=== PATIENT | female | born 1990 | race African-American/Black ===

== ENCOUNTER 2021-02-01 21:50 | Inpatient (IN) | payer SELFPAY ==
[2021-02-01] MEDS ORDERED: Ondansetron PF 4 MG/2 ML Vial ONE (22:58)
[2021-02-01] MEDS ORDERED: Morphine 4 MG/ML VIAL ONE (22:58)
[2021-02-01 23:08] LABS: Bilirubin Neg (Negative); Blood, Urine 25 (Negative); Clarity Clear (Clear); Glucose, Urine (Dipstick) Normal (Negative); Ketone, Urine 15 mg/dL (Negative); Leukocyte 25 (Negative); Nitrite Negative (Negative); Protein, Urine (Dipstick) 15 mg/dl (Neg-Trace); pH, Urine 6.5 (5.0-9.0)
[2021-02-01 23:12] LABS: Pregnancy Test - Urine (BHCG) Negative (Negative); Pregu Control Background? CLEAR/WHITE (CLR/WHITE); Pregu Control Bar Appear? YES (CONTROL BAR)
[2021-02-01 23:16] LABS: RBC/HPF 0-3 HPF (0-3); Squamous Epithelial 0-3 HPF (0-3)
[2021-02-01 23:17] LABS: Bacteria/HPF 2+ HPF (None Seen); Mucous/LPF 2+ LPF (<2+)
[2021-02-01 23:19] LABS: #Monocytes 0.7 10x3/uL (0.0-1.1); #Neutrophils 11.5 10x3/uL (1.5-8.4); %Basophils 0.2 % (0.0-2.0); %Lymphocytes 4.3 % (18.0-47.0); %Monocytes 5.4 % (0.0-10.0); %Neutrophils 89.7 % (40.0-75.0); Hemoglobin 11.1 g/dL (12.0-15.5); Mean Corpuscular Hemoglobin 31.6 pg (27.0-33.0); Mean Corpuscular Volume 95.7 fl (81.6-98.3); Mean Platelet Volume 10.4 fl (7.4-10.4); Platelet Count 153 10x3/uL (150-450); RBC Distribution Width 12.9 % (11.5-14.5); Red Blood Cell (RBC) Count 3.51 10x6/uL (3.90-5.03); White Blood Cell (WBC) Count 12.9 10x3/uL (3.5-10.5)
[2021-02-01 23:25] LABS: ALT (SGPT) 9 U/L (8-55); AST (SGOT) 13 U/L (5-34); Alkaline Phosphatase 53 U/L (40-110); Anion Gap 14 mmol/L (10-20); BUN (Urea Nitrogen) 9 mg/dL (7.0-18.7); Bilirubin, Total 0.8 mg/dL (0.2-1.2); Calc. Creatinine Clearance 0 mL/min (70-130); Carbon Dioxide 24 mmol/L (22-29); Chloride 103 mmol/L (98-107); Globulin 3.4 g/dL (2.4-3.5); Glucose 103 mg/dL (70-105); Protein, Total 7.4 g/dL (6.0-8.3); Sodium 137 mmol/L (136-145)
[2021-02-02] MEDS ORDERED: Ketorolac Tromethamine 30 MG/ML VIAL ONE (00:17)
[2021-02-02] MEDS ORDERED: Piperacillin/Tazobactam 3.375 GM VIAL ONE (00:18)
[2021-02-02 00:20] LABS: Lipase Less than 4 U/L (8-78)
[2021-02-02] MEDS ORDERED: Morphine 4 MG/ML VIAL ONE (02:10)
[2021-02-02] MEDS ORDERED: metroNIDAZOLE 500 MG TAB ONE (02:55)
[2021-02-02 03:47] VITALS: BMI 21.4
[2021-02-02] MEDS ORDERED: Ondansetron PF 4 MG/2 ML Vial IVP PRN (05:03)
[2021-02-02] MEDS ORDERED: Ondansetron ODT 4 MG TAB PO PRN (05:04)
[2021-02-02] MEDS ORDERED: Acetaminophen 325 MG TAB PO PRN (05:05)
[2021-02-02] MEDS ORDERED: Lactated Ringer's 1,000 ML IV SCH (05:15)
[2021-02-02] MEDS ORDERED: Piperacillin/Tazobactam 3.375 GM in Sodium Chloride 0.9% 100 ML IVPB SCH (05:30)
[2021-02-02] MEDS ORDERED: Sodium Chloride 0.9% 1,000 ML ONE (05:49)
[2021-02-02] MEDS ORDERED: Morphine 2 MG/ML VIAL SLOW IVP PRN (05:53)
[2021-02-02] MEDS: Piperacillin/Tazobactam 3.375 GM in Sodium Chloride 0.9% 100 ML IVPB SCH ×3 (06:03→21:48)
[2021-02-02] MEDS: Sodium Chloride 0.9% 1,000 ML ONE ×2 (06:03→06:32)
[2021-02-02] MEDS: HYDROcodone/Acetaminophen 5/325 mg Tablet PO PRN ×3 (06:09→21:43)
[2021-02-02] MEDS: Sodium Chloride 0.9% 1,000 ML IV SCH ×3 (06:33→21:50)
[2021-02-02 08:58] LABS: Hemoglobin 9.7 g/dL (12.0-15.5); Mean Corpuscular HGB CONC 32.9 g/dL (32.0-36.0); Mean Corpuscular Hemoglobin 31.8 pg (27.0-33.0); Mean Corpuscular Volume 96.7 fl (81.6-98.3); Mean Platelet Volume 10.8 fl (7.4-10.4); Platelet Count 135 10x3/uL (150-450); Red Blood Cell (RBC) Count 3.05 10x6/uL (3.90-5.03); White Blood Cell (WBC) Count 16.7 10x3/uL (3.5-10.5)
[2021-02-02 09:01] LABS: ALT (SGPT) 8 U/L (8-55); AST (SGOT) 12 U/L (5-34); Albumin 3.3 g/dL (3.5-5.0); Alkaline Phosphatase 49 U/L (40-110); Anion Gap 10 mmol/L (10-20); BUN (Urea Nitrogen) 9 mg/dL (7.0-18.7); Bilirubin, Total 0.8 mg/dL (0.2-1.2); Calc. Creatinine Clearance 86 mL/min (70-130); Calcium 8.7 mg/dL (7.8-10.44); Carbon Dioxide 24 mmol/L (22-29); Chloride 106 mmol/L (98-107); Globulin 2.7 g/dL (2.4-3.5); Glucose 96 mg/dL (70-105); Magnesium 1.6 mg/dL (1.6-2.6); Potassium 3.4 mmol/L (3.5-5.1); Sodium 137 mmol/L (136-145)
[2021-02-02 09:12] LABS: MDiff Complete? YES
[2021-02-02] MEDS: Famotidine 20 MG TAB PO SCH ×2 (09:14→21:49)
[2021-02-02] MEDS: Enoxaparin Sodium 40 MG/0.4 ML SYRINGE SC SCH (09:14)
[2021-02-02 09:20] LABS: Band 27 % (5-11); Lymphocytes 7 % (21-51); Monocytes 5 % (0-10); Neutrophil 61 % (42-75)
[2021-02-02 09:22] LABS: Platelet Morphology Comment Appears Decreased; RBC Morphology Normal
[2021-02-02 16:33] LABS: SARS-CoV-2 PCR by NAA Not Detected (NotDetected)
[2021-02-03] MEDS: HYDROcodone/Acetaminophen 5/325 mg Tablet PO PRN ×2 (03:55→09:49)
[2021-02-03] MEDS: Sodium Chloride 0.9% 1,000 ML IV SCH ×3 (05:09→17:15)
[2021-02-03 05:27] LABS: ALT (SGPT) 6 U/L (8-55); AST (SGOT) 13 U/L (5-34); Albumin 3.3 g/dL (3.5-5.0); Alkaline Phosphatase 45 U/L (40-110); Anion Gap 11 mmol/L (10-20); BUN (Urea Nitrogen) 8 mg/dL (7.0-18.7); Bilirubin, Total 0.6 mg/dL (0.2-1.2); Calc. Creatinine Clearance 100 mL/min (70-130); Calcium 9.1 mg/dL (7.8-10.44); Carbon Dioxide 24 mmol/L (22-29); Chloride 105 mmol/L (98-107); Globulin 2.9 g/dL (2.4-3.5); Glucose 80 mg/dL (70-105); Magnesium 1.9 mg/dL (1.6-2.6); Potassium 3.4 mmol/L (3.5-5.1); Protein, Total 6.2 g/dL (6.0-8.3); Sodium 137 mmol/L (136-145)
[2021-02-03] MEDS: Piperacillin/Tazobactam 3.375 GM in Sodium Chloride 0.9% 100 ML IVPB SCH ×2 (05:29→17:14)
[2021-02-03 05:40] LABS: #Eosinphils 0.1 10x3/uL (0.0-0.5); #Monocytes 1.1 10x3/uL (0.0-1.1); #Neutrophils 9.7 10x3/uL (1.5-8.4); %Basophils 0.2 % (0.0-2.0); %Eosinophils 0.8 % (0.0-6.0); %Lymphocytes 10.4 % (18.0-47.0); %Monocytes 8.7 % (0.0-10.0); %Neutrophils 79.5 % (40.0-75.0); Mean Corpuscular Hemoglobin 31.9 pg (27.0-33.0); Mean Corpuscular Volume 96.8 fl (81.6-98.3); Mean Platelet Volume 10.9 fl (7.4-10.4); Platelet Count 143 10x3/uL (150-450); RBC Distribution Width 12.9 % (11.5-14.5); Red Blood Cell (RBC) Count 3.13 10x6/uL (3.90-5.03); White Blood Cell (WBC) Count 12.2 10x3/uL (3.5-10.5)
[2021-02-03] MEDS ORDERED: Azithromycin 1,000 MG, Admixture Fee 1 EACH in Sodium Chloride 0.9% 500 ML IVPB SCH (09:00)
[2021-02-03] MEDS: Enoxaparin Sodium 40 MG/0.4 ML SYRINGE SC SCH (09:09)
[2021-02-03] MEDS: Famotidine 20 MG TAB PO SCH (09:09)
[2021-02-03 16:50] LABS: Chlamydia by PCR Not Detected (NotDetected); GC by PCR DETECTED (NotDetected)
[2021-02-03] MEDS ORDERED: cefTRIAXone\\ROCEPHIN 1 GM in Sodium Chloride 0.9% 100 ML IVPB SCH (18:00)
[2021-02-03 20:50] VITALS: BP 118/72; TEMP 99.1
== END 2021-02-03 20:00 | disposition home or self-care (01) | DRG 690 ==
LOC: CSHERS 21:50 → CSHTELE 02-02 03:43 → OBSVTOIN 02-02 05:28
PROVIDERS: ADMIT Internal Medicine; ATTEND Internal Medicine
DX: N39.0 Urinary tract infection, site not specified (principal); A54.01 Gonococcal cystitis and urethritis, unspecified; F17.210 Nicotine dependence, cigarettes, uncomplicated; R11.2 Nausea with vomiting, unspecified; R10.13 Epigastric pain; Z20.822 Contact with and (suspected) exposure to COVID-19
CPT/HCPCS: 36415; 74177; 76856; 80053; 81003; 81015; 81025; 83036; 83605; 83690; 83735; 85025; 87040; 87086; 87480; 87491; 87510; 87591; 87660; 96365; 96375; 96376; J0456; J0696; J1650; J1885; J2270; J2405; J2543; J3490; J7030; J7050; J7120; U0003; U0005

== ENCOUNTER 2022-01-27 11:17 | Day surgery (SDC) | payer OTHER, SELFPAY ==
[2022-01-27 12:13] VITALS: BMI 22.3
[2022-01-27] MEDS ORDERED: hydrALAZINE 20 MG/ML VIAL SLOW IVP PRN (13:03)
[2022-01-27] MEDS ORDERED: Ondansetron ODT 4 MG TAB SL PRN (13:37)
[2022-01-27 14:41] LABS: Amphetamine Not Detected (NotDetected); Barbiturates Screen Not Detected (NotDetected); Benzodiazepine Screen Not Detected (NotDetected); Cocaine Metabolite Screen Not Detected (NotDetected); Methadone Not Detected (NotDetected); Methamphetamine Not Detected (NotDetected); Opiate Screen Not Detected (NotDetected); Oxycodone Screen Not Detected (NotDetected); Phencyclidine (PCP) Not Detected (NotDetected); THC/Cannabinoid Screen Detected (NotDetected); Tricyclic Screen Not Detected (NotDetected)
== END 2022-01-27 14:20 | disposition left against medical advice (07) ==
LOC: CSHLD/OP 11:17
PROVIDERS: ATTEND Obstetrics & Gynecology
DX: O21.2 Late vomiting of pregnancy (principal); Z3A.33 33 weeks gestation of pregnancy
CPT/HCPCS: 80306; 99283; Q0162

== ENCOUNTER 2022-03-04 03:48 | Inpatient (IN) | payer OTHER ==
[2022-03-04] MEDS ORDERED: Misoprostol 200 MCG TAB PR PRN (05:32)
[2022-03-04] MEDS ORDERED: hydrALAZINE 20 MG/ML VIAL SLOW IVP PRN ×2 (05:32→09:23)
[2022-03-04] MEDS ORDERED: Acetaminophen 500 MG TAB PO PRN (05:32)
[2022-03-04] MEDS ORDERED: Butorphanol Tartrate 1 MG/ML VIAL SLOW IVP PRN (05:32)
[2022-03-04] MEDS ORDERED: Lidocaine 1% (PF) 30 ML VIAL SC PRN (05:32)
[2022-03-04] MEDS ORDERED: Carboprost 250 MCG/ML AMP IM PRN (05:32)
[2022-03-04] MEDS ORDERED: Ibuprofen 800 MG TAB PO PRN (05:32)
[2022-03-04] MEDS ORDERED: Promethazine HCl 25 MG/ML VIAL IM PRN ×2 (05:32→09:23)
[2022-03-04] MEDS ORDERED: Methylergonovine 0.2 MG/ML VIAL IM PRN ×2 (05:32→09:23)
[2022-03-04] MEDS ORDERED: Ondansetron PF 4 MG/2 ML Vial IVP PRN ×2 (05:32→09:23)
[2022-03-04 05:39] VITALS: BMI 25.0
[2022-03-04] MEDS ORDERED: Lactated Ringer's 1,000 ML IV SCH (05:45)
[2022-03-04] MEDS ORDERED: NS w/ Oxytocin 30 units 500 ML IV SCH ×3 (05:45→09:23)
[2022-03-04 06:19] LABS: Mean Corpuscular HGB CONC 34.4 g/dL (32.0-36.0); Mean Corpuscular Hemoglobin 31.3 pg (27.0-33.0); Mean Corpuscular Volume 90.9 fl (81.6-98.3); Mean Platelet Volume 10.8 fl (7.4-10.4); Platelet Count 249 10x3/uL (150-450); RBC Distribution Width 12.8 % (11.5-14.5); White Blood Cell (WBC) Count 10.8 10x3/uL (3.5-10.5)
[2022-03-04 06:48] LABS: HBSAg Index 0.22 S/CO (0-0.99); Hep B Surf Ag Non-Reactive S/CO (NonReactive); Syphilis Antibody Nonreactive (Nonreactive); Syphilis Antibody Index 0.03 S/CO (<1.00 Non-Reactive)
[2022-03-04] MEDS ORDERED: Misoprostol 200 MCG TAB ONE (06:53)
[2022-03-04] MEDS ORDERED: Carboprost 250 MCG/ML AMP ONE (06:53)
[2022-03-04] MEDS ORDERED: Methylergonovine 0.2 MG/ML VIAL ONE (06:54)
[2022-03-04] MEDS ORDERED: Morphine 10 MG/ML VIAL ONE (07:52)
[2022-03-04] MEDS ORDERED: Morphine 2 MG/ML VIAL SLOW IVP SCH (08:00)
[2022-03-04 08:33] LABS: Amphetamine Not Detected (NotDetected); Barbiturates Screen Not Detected (NotDetected); Benzodiazepine Screen Not Detected (NotDetected); Cocaine Metabolite Screen Not Detected (NotDetected); Methadone Not Detected (NotDetected); Methamphetamine Not Detected (NotDetected); Opiate Screen Not Detected (NotDetected); Oxycodone Screen Not Detected (NotDetected); Phencyclidine (PCP) Not Detected (NotDetected); THC/Cannabinoid Screen Detected (NotDetected); Tricyclic Screen Not Detected (NotDetected)
[2022-03-04] MEDS ORDERED: Erythromycin Base 0.5% Oint 1 GM TUBE ONE (08:46)
[2022-03-04] MEDS ORDERED: Phytonadione Neonatal 1 MG/0.5 ML AMP ONE (08:46)
[2022-03-04] MEDS ORDERED: Hepatitis B Vaccine 10 MCG/0.5 ML SYR ONE (08:47)
[2022-03-04] MEDS ORDERED: diphenhydrAMINE 25 MG CAP PO PRN (09:23)
[2022-03-04] MEDS ORDERED: Bisacodyl 10 MG SUPP PR PRN (09:23)
[2022-03-04] MEDS ORDERED: Milk Of Magnesia 30 ML UDCUP PO PRN (09:23)
[2022-03-04] MEDS ORDERED: Boostrix 0.5 ML (Tdap) VIAL (>/=7 yrs of age) IM ONE (09:23)
[2022-03-04] MEDS ORDERED: Ferrous Sulfate 325 MG TAB PO SCH (09:30)
[2022-03-04 11:47] LABS: SARS-CoV-2 NAA Rapid Test Not Detected (NotDetected)
[2022-03-04] MEDS ORDERED: Acetaminophen 500 MG TAB PO SCH (12:00)
[2022-03-04] MEDS: Prenatal Vitamin 1 TAB PO SCH (14:28)
[2022-03-04] MEDS: Docusate 100 MG CAP PO SCH ×2 (14:28→21:41)
[2022-03-04] MEDS: Ibuprofen 800 MG TAB PO SCH ×2 (14:36→21:42)
[2022-03-04] MEDS ORDERED: HYDROcodone/Acetaminophen 5/325 mg Tablet PO PRN ×4 (16:47→17:22)
[2022-03-04] MEDS ORDERED: HYDROcodone/Acetaminophen 5/325 mg Tablet PO SCH (17:30)
[2022-03-04] MEDS ORDERED: Tranexamic Acid 1,000 MG in Sodium Chloride 0.9% 100 ML IVPB SCH (18:00)
[2022-03-04] MEDS: Ferrous Sulfate 325 MG TAB PO SCH (19:31)
[2022-03-04] MEDS: Acetaminophen 500 MG TAB PO SCH (19:33)
[2022-03-05] MEDS: Acetaminophen 500 MG TAB PO SCH ×4 (00:13→16:51)
[2022-03-05] MEDS: HYDROcodone/Acetaminophen 5/325 mg Tablet PO PRN ×3 (01:35→16:45)
[2022-03-05 04:30] LABS: Hemoglobin 9.4 g/dL (12.0-15.5); Mean Corpuscular HGB CONC 33.5 g/dL (32.0-36.0); Mean Corpuscular Hemoglobin 30.5 pg (27.0-33.0); Mean Corpuscular Volume 91.2 fl (81.6-98.3); Mean Platelet Volume 10.1 fl (7.4-10.4); Platelet Count 227 10x3/uL (150-450); RBC Distribution Width 12.5 % (11.5-14.5); Red Blood Cell (RBC) Count 3.08 10x6/uL (3.90-5.03); White Blood Cell (WBC) Count 16.5 10x3/uL (3.5-10.5)
[2022-03-05] MEDS: Ibuprofen 800 MG TAB PO SCH ×3 (05:42→21:39)
[2022-03-05] MEDS: Ferrous Sulfate 325 MG TAB PO SCH ×2 (08:42→16:50)
[2022-03-05] MEDS: Docusate 100 MG CAP PO SCH ×2 (08:42→21:39)
[2022-03-05] MEDS: Prenatal Vitamin 1 TAB PO SCH (10:30)
[2022-03-06] MEDS: Acetaminophen 500 MG TAB PO SCH ×3 (05:08→11:01)
[2022-03-06] MEDS: Ibuprofen 800 MG TAB PO SCH ×2 (05:08→13:22)
[2022-03-06 06:54] LABS: Hemoglobin 8.1 g/dL (12.0-15.5)
[2022-03-06 07:26] VITALS: BP 138/90; TEMP 98.2
[2022-03-06] MEDS: Docusate 100 MG CAP PO SCH (08:14)
[2022-03-06] MEDS: Ferrous Sulfate 325 MG TAB PO SCH (08:14)
[2022-03-06] MEDS: Prenatal Vitamin 1 TAB PO SCH (08:14)
== END 2022-03-06 13:35 | disposition home or self-care (01) | DRG 806 ==
LOC: CSHLD/OP 03:48 → CSHLD 04:41 → CSHPP 10:40
PROVIDERS: ADMIT Family Medicine; ATTEND Family Medicine
PROC: 10E0XZZ Delivery of Products of Conception, External Approach (ICD-10-PCS; principal; 2022-03-04)
PROC: 10907ZC Drainage of Amniotic Fluid, Therapeutic from Products of Conception, Via Natural or Artificial Opening (ICD-10-PCS; 2022-03-04)
DX: O99.344 Other mental disorders complicating childbirth (principal); O72.2 Delayed and secondary postpartum hemorrhage; Z37.0 Single live birth; O99.324 Drug use complicating childbirth; F31.9 Bipolar disorder, unspecified; Z3A.38 38 weeks gestation of pregnancy; Z79.899 Other long term (current) drug therapy; O32.8XX0 Maternal care for other malpresentation of fetus, not applicable or unspecified; F12.90 Cannabis use, unspecified, uncomplicated
CPT/HCPCS: 36415; 80306; 85014; 85018; 85027; 86780; 86850; 86900; 86901; 87340; 99285; J2210; J2270; J2590; J3490; U0002

== ENCOUNTER 2025-01-31 18:37 | Inpatient (IN) | payer MEDICAID ==
[2025-01-31 18:51] VITALS: BMI 21.3
[2025-01-31] MEDS ORDERED: Methylergonovine 0.2 MG/ML VIAL IM PRN (19:33)
[2025-01-31] MEDS ORDERED: hydrALAZINE 20 MG/ML VIAL SLOW IVP PRN (19:33)
[2025-01-31] MEDS ORDERED: Diphenoxylate HCl/Atropine Tablet PO PRN (19:33)
[2025-01-31] MEDS ORDERED: Ibuprofen 800 MG TAB PO PRN (19:33)
[2025-01-31] MEDS ORDERED: Ondansetron PF 4 MG/2 ML Vial IVP PRN (19:33)
[2025-01-31] MEDS ORDERED: Acetaminophen 500 MG TAB PO PRN (19:33)
[2025-01-31] MEDS ORDERED: Carboprost 250 MCG/ML AMP IM PRN (19:33)
[2025-01-31] MEDS ORDERED: Tranexamic Acid 1,000 MG/10 ML VIAL IVP PRN (19:33)
[2025-01-31] MEDS ORDERED: Lidocaine 1% (PF) 30 ML VIAL SC PRN (19:33)
[2025-01-31] MEDS ORDERED: Oxytocin 30 units/NS 500 ML 500 ML IV SCH ×2 (19:45)
[2025-01-31] MEDS: Penicillin G Potassium 5 MILL.UNITS in Sodium Chloride 0.9% 100 ML IVPB SCH (20:12)
[2025-01-31 20:39] LABS: Hematocrit 33.8 % (34.9-44.5); Hemoglobin 11.2 g/dL (12.0-15.5); Mean Corpuscular Hemoglobin 30.0 pg (27.0-33.0); Mean Corpuscular Volume 90.6 fL (81.6-98.3); Platelet Count 164 10x3/uL (150-450); Red Blood Cell (RBC) Count 3.73 10x6/uL (3.90-5.03); White Blood Cell (WBC) Count 7.36 10x3/uL (3.5-10.5)
[2025-01-31 21:29] LABS: Glucose 59 mg/dL (70-105)
[2025-01-31 21:55] LABS: Hep B Surf Ag - L&D Non-Reactive S/CO (NonReactive)
[2025-01-31 21:56] LABS: Syphilis Antibody Index 0.04 S/CO (<1.00 Non-Reactive)
[2025-01-31] MEDS: fentaNYL/Ropivacaine Epidural 100 ML ONE (23:09)
[2025-01-31] MEDS ORDERED: diphenhydrAMINE 50 MG/ML VIAL IVP PRN (23:26)
[2025-01-31] MEDS ORDERED: Communication Order-Pharmacy FS SCH (23:30)
[2025-01-31] MEDS ORDERED: fentaNYL 2 mcg/Ropivacaine 0.2% Epidural 100 ML CADD EPIDURAL SCH (23:30)
[2025-02-01] MEDS: Penicillin G 2.5 MILL.units 2.5 MILL.UNITS in Premix 1 BAG IVPB SCH (00:08)
[2025-02-01 00:49] LABS: ALT (SGPT) Less than 7 U/L (Less than 34); AST (SGOT) 13 U/L (11-34); Albumin 3.3 g/dL (3.1-4.5); Alkaline Phosphatase 127 U/L (40-110); Anion Gap 12 mmol/L (10-20); BUN (Urea Nitrogen) 4 mg/dL (7.0-18.7); Bilirubin, Total 0.4 mg/dL (0.3-1.2); Calc. Creatinine Clearance 110 mL/min (70-130); Calcium 9.0 mg/dL (7.8-10.44); Carbon Dioxide 23 mmol/L (22-29); Chloride 106 mmol/L (98-107); Globulin 3.6 g/dL (2.4-3.5); Glucose 118 mg/dL (70-105); Potassium 3.2 mmol/L (3.5-5.1); Sodium 138 mmol/L (136-145)
[2025-02-01 00:49] LABS: Protein, Urine Random Quant Less than 10 mg/dL (1-14)
[2025-02-01 02:26] LABS: Cocaine Metabolite Screen Negative (Negative); THC/Cannabinoid Screen Negative (Negative); Tricyclic Screen Negative (Negative)
[2025-02-01] MEDS ORDERED: Ondansetron PF 4 MG/2 ML Vial IVP PRN (03:41)
[2025-02-01] MEDS ORDERED: hydrALAZINE 20 MG/ML VIAL SLOW IVP PRN (03:41)
[2025-02-01] MEDS ORDERED: Boostrix 0.5 ML (Tdap) VIAL (>/=7 yrs of age) IM ONE (03:41)
[2025-02-01] MEDS ORDERED: Bisacodyl 10 MG SUPP PR PRN (03:41)
[2025-02-01] MEDS ORDERED: Methylergonovine 0.2 MG/ML VIAL IM PRN (03:41)
[2025-02-01] MEDS ORDERED: Milk Of Magnesia 30 ML UDCUP PO PRN (03:41)
[2025-02-01] MEDS ORDERED: Oxytocin 30 units/NS 500 ML 500 ML IV SCH (03:45)
[2025-02-01] MEDS: Ibuprofen 800 MG TAB PO SCH (04:22)
[2025-02-01] MEDS: Ondansetron PF 4 MG/2 ML Vial IVP PRN (04:40)
[2025-02-01] MEDS: Acetaminophen 325 MG TAB PO PRN (08:28)
[2025-02-01] MEDS: Ferrous Sulfate 325 MG TAB PO SCH (08:28)
[2025-02-01] MEDS ORDERED: Bupivacaine/Epinephrine 0.25% 30 ML VIAL ONE (09:00)
[2025-02-01] MEDS: HYDROcodone/Acetaminophen 5/325 mg Tablet PO SCH (18:34)
[2025-02-02 01:23] VITALS: TEMP 98.4
[2025-02-02 07:33] VITALS: BP 118/73
== END 2025-02-02 14:05 | disposition home or self-care (01) | DRG 807 ==
LOC: CSHLD/OP 18:37 → CSHLD 19:55 → CSHPP 02-01 05:45
PROVIDERS: ADMIT Family Medicine; ATTEND Family Medicine
PROC: 10E0XZZ Delivery of Products of Conception, External Approach (ICD-10-PCS; principal; 2025-02-01)
PROC: 0UQMXZZ Repair Vulva, External Approach (ICD-10-PCS; 2025-02-01)
DX: O24.425 Gestational diabetes mellitus in childbirth, controlled by oral hypoglycemic drugs (principal); Z37.0 Single live birth; O99.02 Anemia complicating childbirth; O99.824 Streptococcus B carrier state complicating childbirth; O99.344 Other mental disorders complicating childbirth; Z3A.00 Weeks of gestation of pregnancy not specified; Z3A.40 40 weeks gestation of pregnancy; F32.A Depression, unspecified; Z79.82 Long term (current) use of aspirin; Z79.84 Long term (current) use of oral hypoglycemic drugs; Z79.899 Other long term (current) drug therapy
CPT/HCPCS: 36415; 36416; 51702; 80053; 80306; 82570; 82947; 84156; 85027; 86780; 86850; 86900; 86901; 87340; 99285; J2405; J2540; J3010; J7120